=== PATIENT | female | born 1950 | race African-American/Black ===

== ENCOUNTER 2016-09-04 06:58 | Day surgery (SDC) | payer BC ==
--- NOTE | ~2016-09-04 | EGD ---
EGD REPORT [facility] [address] [place]. [address] NAME: HUI RIOS : [birth year] STATUS : REG [facility]#: [id number] AGE: 65 ADM/REG DATE : 09/04/16 MR#: [id number] REPORT SERV DATE: 09/04/16 DICTATED BY: JOSE DANIELS DATE: 09/04/16 REPORT STATUS : Draft TRANSCRIBED BY: [employer] DATE: 09/04/16 [facility] Patient Name: Hui Rios. Date of : 1950 Attending MD: JOSE DANIELS, Procedure Date No Time: 09/04/2016 Procedure: Colonoscopy Indications: High risk colon cancer surveillance: Personal history of colonic polyps Medicines: Monitored Anesthesia Care Complications: No immediate complications. Estimated blood loss: None. Procedure: Pre-Anesthesia Assessment: - ASA Grade Assessment: III - A patient with severe systemic disease. After I obtained informed consent, the scope was passed under direct vision. Throughout the procedure, the patient's blood pressure, pulse, and oxygen saturations were monitored continuously. The CF [id number] was introduced through the anus and advanced to the cecum, identified by appendiceal orifice and ileocecal valve. The colonoscopy was performed without difficulty. The patient tolerated the procedure well. The quality of the bowel preparation was adequate. The ileocecal valve, appendiceal orifice and rectum were photographed. Findings: Perianal examination was normal. Internal hemorrhoids were found during retroflexion and were Grade I (internal hemorrhoids that do not prolapse). The exam was otherwise without abnormality on direct and retroflexion views. Impression: - Internal hemorrhoids. - The examination was otherwise normal on direct and retroflexion views. Recommendation: - Patient has a contact number available for emergencies. The signs and symptoms of potential delayed complications were discussed with the patient. Return to normal activities tomorrow. Written discharge instructions were provided to the patient. - Return to previous diet. - Continue present medications. - Repeat colonoscopy in 5 years for surveillance. EGD REPORT [facility] [address] [place] [address] [place] [address] NAME: HUI RIOS : [birth year] STATUS : REG [facility]#: [id number] AGE: 65 ADM/REG DATE : 09/04/16 MR#: [id number] REPORT SERV DATE: 09/04/16 DICTATED BY: JOSE DANIELS DATE: 09/04/16 REPORT STATUS : Draft TRANSCRIBED BY: [employer] DATE: 09/04/16 Procedure Code(s): --- Professional --- 79057, Colonoscopy, flexible, proximal to splenic flexure; diagnostic, with or without collection of specimen(s) by brushing or washing, with or without colon decompression (separate procedure) Diagnosis Code(s): --- Professional --- K64.0, First degree hemorrhoids Z86.010, Personal history of colonic polyps CPT copyright 2013 [employer]. All rights reserved. The codes documented in this report are preliminary and upon label coder review may be revised to meet current compliance requirements. JOSE DANIELS, 09/04/2016 8:25 AM Number of Addenda: 0 Note Initiated On: 09/04/2016 7:52 AM Scope Withdrawal Time 0 hours 8 minutes 10 seconds [address] [place] [id number]
[~2016-09-04 06:58] MED LIST: COZ50 PO; FERROUS SULF325 M1 PO; HYDROCHLOROT12.5 MG PO; LIPITOR10 PO; MULTIPLE VIT PO
== END 2016-09-04 23:59 | disposition home or self-care (01) ==
LOC: DMU 06:58
PROVIDERS: Internal Medicine Gastroenterology
PROC: 0DJD8ZZ Inspection of Lower Intestinal Tract, Via Natural or Artificial Opening Endoscopic (ICD-10-PCS; principal; 2016-09-04 08:00)
DX: K64.0 First degree hemorrhoids (principal); E78.00 Pure hypercholesterolemia, unspecified; D64.9 Anemia, unspecified; I10 Essential (primary) hypertension; Z86.010 Personal history of colon polyps; Z90.710 Acquired absence of both cervix and uterus; Z79.899 Other long term (current) drug therapy; Z88.0 Allergy status to penicillin; Z88.6 Allergy status to analgesic agent; Z98.51 Tubal ligation status